=== PATIENT | female | born 1945 | race Caucasian/White ===

== ENCOUNTER 2016-03-30 07:50 | Inpatient (IN) | payer MEDICARE, BC ==
[2016-03-30] MEDS ORDERED: Magnesium Hydroxide LIQ* 30 ML UDC PO PRN (12:34)
[2016-03-30] MEDS ORDERED: Bisacodyl SUPP* 10 MG SUPP PR PRN (12:34)
[2016-03-30] MEDS ORDERED: Acetaminophen TAB* 325 MG PO PRN (12:34)
[2016-03-30] MEDS: HYDROcodone/ACETAMIN 5-325 MG* 1 TAB PO PRN ×3 (13:23→23:31)
[2016-03-30] MEDS: Cephalexin CAP* 500 MG PO SCH ×2 (14:01→20:55)
[2016-03-30] MEDS ORDERED: Warfarin TAB(*) 5 MG PO SCH (17:00)
[2016-03-30] MEDS: Atorvastatin* 20 MG TAB PO SCH (17:43)
[2016-03-30] MEDS: Enoxaparin(*) 80 MG/0.8 ML SYR SUBCUT SCH (18:07)
[2016-03-30] MEDS: fentaNYL PATCH 12 MCG/HR TRANSDERM SCH (20:40)
[2016-03-30] MEDS: Docusate CAP* 100 MG PO SCH (20:55)
[2016-03-30] MEDS: Senna TAB PO SCH (20:55)
[2016-03-30] MEDS: Sertraline* 100 MG TAB PO SCH (20:55)
[2016-03-30] MEDS: fentaNYL Patch Check Q Shift 1 NOTE SCH (21:01)
--- NOTE | 2016-03-31 01:22 | HP ---
ADMISSION HISTORY AND PHYSICAL: DATE OF ADMISSION: 03/30/16 REASON FOR ADMISSION: Left hip fracture. HISTORY OF ILLNESS: Teri Cabrales is a 70-year-old female. She has a history of factor V Leiden and has had a pulmonary embolus in the past. She has also had mini strokes. As a result, she takes chronic Coumadin therapy. On , the patient was going to a dinner at a friend's house. She was carrying some packages into the house and went up the steps. As she was opening the screen door to knock on the front door, she lost her balance and fell down on the 3 steps. She landed on her left hip. She was able to get to her pocket bucket and pull out her cellphone and called the people in the house for help. 911 was called and she was brought to [facility] for evaluation. In the emergency room, the patient had an x-ray taken of her hip. She was found to have a subcapital impaction fracture of the left hip. It was recommended that she had a CT scan for further evaluation. She did have a pelvic CT scan showing mildly impacted basicervical left femoral neck fracture with anterior angulation. The orthopedic surgeon, Dr. Holliday, was consulted. Her anticoagulation had to be reversed. She was taken to the operating room on and had a closed reduction with cannulated screw fixation done of the left hip. She was made touchdown weightbearing after her surgery. The patient was felt to have physical therapy and occupational therapy needs. She is now being admitted for inpatient rehab so that she might return to independent living. PAST MEDICAL HISTORY: Significant for the aforementioned factor V Leiden and pulmonary embolus. She has also had 3 previous surgeries on her right hip with a total hip replacement on the right. She has had spinal surgery in the past and uses a fentanyl patch for chronic back pain. She has a history of having mini strokes and hyperlipidemia. CURRENT MEDICATIONS: Include the Duragesic patch. She is also on: 1. Deerfield. 2. Keflex. 3. Lovenox. 4. Coumadin. 5. Senokot. 6. Zoloft. 7. Lipitor instead of her usual Zocor. ALLERGIES: Include PERCOCET and SULFA DRUGS. SOCIAL HISTORY: She is a nonsmoker, nondrinker. Lives by herself in a one- kareen apartment. She lives in the [facility]. She was independent in her activities of daily prior to admission. REVIEW OF SYSTEMS: The patient reports no current shortness of breath or chest pain. PHYSICAL EXAMINATION VITAL SIGNS: The patient's temperature is 98.8, blood pressure is 106/56, pulse 85, and respirations 18. HEENT: Her extraocular movements are intact. Tongue is midline. NECK: supple. LUNGS: Sound clear to auscultation bilaterally. HEART: Sounds are regular. S1 and S2 are audible. ABDOMEN: Soft and nontender. EXTREMITIES: Her left hip has a wound, which is clean and dry. Peripheral pulses are intact. NEUROLOGIC: She is awake, alert, and oriented. Muscle strength appears to be 5 /5 except the left hip, which is 3/5 secondary to pain. FUNCTIONAL EXAM: She transfers with mini assist. ASSESSMENT: Basicervical left femoral neck fracture, status post cannulated screw fixation. PLAN: Integrate her into a comprehensive and therapeutic rehab program on the following goals: 1. Physical Therapy will work with the patient. They are going to work on functional transfer training, ambulation training with a walker, and wheelchair mobilities. She is toe-touch weightbearing on the left. 2. Occupational Therapy will see the patient and work on her activities of daily living including toileting and toilet transfers. 3. Coumadin for her factor V Leiden and her DVT prophylaxis. Until she is therapeutic, we are going to continue her on Lovenox 70 mg subcutaneously twice a day. 4. Continue her fentanyl patch for chronic pain and for her new pain, we will continue Deerfield 1 to 2 tablets every 4 hours as needed. 5. Her bowels will be regulated. 6. dental services director will be closely involved to make sure that any services and equipment that the patient requires are in place prior to discharge. 7. Advanced directives: The patient is a full code. 8. For her depression, we will continue Zoloft. 9. Home with appropriate services. ESTIMATED LENGTH OF STAY: Twelve days. [id number]/[facility] #: [id number] [place]
[2016-03-31] MEDS: HYDROcodone/ACETAMIN 5-325 MG* 1 TAB PO PRN ×5 (03:51→20:11)
[2016-03-31] MEDS: Enoxaparin(*) 80 MG/0.8 ML SYR SUBCUT SCH ×2 (06:13→18:18)
[2016-03-31] MEDS: Cephalexin CAP* 500 MG PO SCH ×3 (06:13→20:09)
[2016-03-31 06:22] LABS: Hematocrit 33 % (35-47); Hemoglobin 10.6 g/dl (12.0-16.0); Mean Corpuscular HGB Conc 33 g/dl (31-36); Mean Corpuscular Hemoglobin 29 pg (27-31); Mean Corpuscular Volume 88 fL (80-97); Mean Platelet Volume 8 um3 (7.4-10.4); Red Cell Distribution Width 15 % (10.5-15); White Blood Count 7.4 10^3/ul (3.5-10.8)
[2016-03-31] MEDS: fentaNYL Patch Check Q Shift 1 NOTE SCH ×3 (07:07→23:55)
[2016-03-31] MEDS: Docusate CAP* 100 MG PO SCH ×2 (09:05→20:10)
[2016-03-31] MEDS ORDERED: Warfarin TAB(*) 6 MG PO SCH (12:43)
--- NOTE | 2016-03-31 16:19 | PN ---
Progress Note - Progress Note SOAP: Subjective: [Pt is doing well, sitting comfortably in her bed. She states that her pain is under control. ] Objective: [General: Pt is awake, alert and oriented. Pt is jovial and in no acute distress LLE: Dressing is clean, dry and intact. Pt is able to lift thigh up off the bed. She is able to move toes and ankles. Pt has sensation to light touch distal to the incision site. DP and PT are 2+ bilaterally. ] Vital Signs Temp 98.2 F 03/31/16 15:58 Pulse 89 03/31/16 15:58 Resp 16 03/31/16 16:09 BP 118/61 03/31/16 15:58 Pulse Ox 91 03/31/16 15:58 Intake & Output 03/30/16 03/31/16 03/31/16 18:59 06:59 18:59 Intake Total 360 600 Output Total 0 Balance 360 0 600 Weight 162 lb Intake: Oral 360 600 Output: # Incontinent Voids 0 Other: Estimated Void Medium Medium Medium # Voids 1 1 1 Assessment: [S/P left hip CRPP] Plan: [Continue with current pain management Continue PT/OT Continue current DVT prophylaxis ]
[2016-03-31] MEDS: Atorvastatin* 20 MG TAB PO SCH (18:18)
[2016-03-31] MEDS: Sertraline* 100 MG TAB PO SCH (20:09)
[2016-03-31] MEDS: Senna TAB PO SCH (20:09)
[2016-03-31] MEDS: Cyclobenzaprine TAB* 10 MG PO PRN (20:10)
[2016-04-01] MEDS: HYDROcodone/ACETAMIN 5-325 MG* 1 TAB PO PRN ×5 (02:10→21:31)
[2016-04-01] MEDS: Cephalexin CAP* 500 MG PO SCH ×3 (05:56→21:32)
[2016-04-01] MEDS: Enoxaparin(*) 80 MG/0.8 ML SYR SUBCUT SCH ×2 (05:57→17:08)
[2016-04-01 06:36] LABS: Albumin 2.9 g/dL (3.2-5.2); BUN/Creatinine Ratio 23.6 (8-20); Calcium 8.1 mg/dL (8.6-10.3); EGFR African American 80.9 (>60); EGFR Non-African American 62.9 (>60); Globulin 2.8 g/dL (2-4); Potassium 4.1 mmol/L (3.5-5.0); Total Bilirubin 0.4 mg/dL (0.2-1.0); Total Protein 5.7 g/dL (6.4-8.9)
[2016-04-01] MEDS: fentaNYL Patch Check Q Shift 1 NOTE SCH ×3 (06:59→23:10)
[2016-04-01] MEDS: Docusate CAP* 100 MG PO SCH ×2 (08:46→21:32)
--- NOTE | 2016-04-01 12:57 | PMRUTEAM ---
PMRU: Goals Current Status: Nursing: Current Status Skin Deviations [right hip and Incision lower back] Skin Deviations [Left Hip] Incision Skin Deviation Description [ old healed right hip and lower back] Skin Deviation Description [ dressing CDI Left Hip] Physical Therapy: Current Status Bed Mobility Assistance Supervision Transfer Moblility Assistance Supervision Transfer/Bed Mobility Rolling Walker Recommended Devices Ambulation Assistance Supervision Ambulation Assistive Devices Rolling Walker Number of Feet Patient 12' x 2 Ambulated Manual Wheelchair Control/ Bilateral UE's Technique Wheelchair Propulsion Ability Standby Assistance Wheelchair Distance (ft) 600' Occupational Therapy: Current Status Upper Body Dressing Supervision Lower Body Dressing Supervision Bathing Min Assist Toileting Mod Assist Toilet Transfer Min Assist Shower Transfer Contact Guard Assist Eating Independent Social Work: Current Status Discharge Plan return home with home care svs and support from friends Potential for Family Training n/a Anticipated Discharge Home Destination Discharge With support from friends and home care svs Goals: Physical Therapy: Initial Goals Bed Mobility Assistance Independent Transfer Mobility Assistance Independent Transfer/Bed Mobility Rolling Walker Recommended Devices Ambulation Independent Ambulation Recommended Devices Rolling Walker Ambulation Distance 25 Wheelchair Propulsion Ability Independent Wheelchair Distance (ft) 150 Physical Therapy: Updated Goals Transfer/Bed Mobility Rolling Walker Recommended Devices Occupational Therapy: Initial Goals Goals to be Completed in (Days 5-7 ) Upper Body Bathing Routine Independent Lower Body Bathing Routine Modified Independent with Upper Body Dressing Routine Independent Lower Body Dressing Routine Modified Independent with Toilet Hygeine and Clothing Modified Independent with Management Routine Toilet Transfer Routine Modified Independent with Step-In Shower Transfer Modified Independent with Routine Tub Transfer Routine Modified Independent with Functional Transfers for ADL Modified Independent with Grooming Routine Independent Feeding Routine Independent Social Work: Goals Discharge Plan return home with home care svs and support from friends Potential for Family Training n/a Anticipated Discharge Home Destination Discharge With support from friends and home care svs Care Plan: Care Plan ADL's - Improve/Maintain Start: 03/30/16 18:42 Freq: QSHIFT Status: Active Target: Activity Type Activity Date Activity User E-Sign Co-Sign Detail Recorded Client Recorded Date Recorded By Document 03/31/16 14:11 [id number] [id number] 03/31/16 14:11 [id number] 03/31/16 14:11 PMRU Outcome: ADL's/ADL Transfers Orders/Interventions Occupational Therapy Evaluation & Treatment Device Yes Patient to receive OT 5x/wk for 60-120 Therex min/day Self Care Management Group Therapy UE/LE ADL's with Assist Yes: mod I ADL Transfers with Assist Yes: mod I Toileting: Transfers,Clothing Management Yes: mod I ,Hygeine w/Assist Light Kitchen/Laundry w/Assist Yes: mod I Progression Toward Outcome/Goals Progressing DVT Prophylaxis- Improve/Maintain Start: 03/30/16 18:42 Freq: QSHIFT Status: Active Target: Activity Type Activity Date Activity User E-Sign Co-Sign Detail Recorded Client Recorded Date Recorded By Document 04/01/16 00:49 [id number] 04/01/16 00:50 [id number] 04/01/16 00:49 PMRU Outcome: DVT Prophylaxis Outcome/Goals Complies with DVT Prophylaxis /Treatment TEDS Stockings on Every AM, Off at HS Progression Toward Outcome/Goals Progressing Discharge Planning - Improve/Maintain Start: 03/30/16 18:42 Freq: QSHIFT Status: Active Target: Activity Type Activity Date Activity User E-Sign Co-Sign Detail Recorded Client Recorded Date Recorded By Document 04/01/16 00:49 [id number] 04/01/16 00:50 [id number] 04/01/16 00:49 PMRU Outcome: Discharge Planning Outcome/Goals Demonstrates Understanding of Discharge Plan Progression Toward Outcome/Goals Progressing Education-Improve/Maintain Start: 03/30/16 18:42 Freq: QSHIFT Status: Active Target: Activity Type Activity Date Activity User E-Sign Co-Sign Detail Recorded Client Recorded Date Recorded By Document 04/01/16 00:49 [id number] 04/01/16 00:50 [id number] 04/01/16 00:49 PMRU Outcome: Education Outcome/Goals Demonstrate/ Verbalize Understanding of Written Discharge Instructions Encourage Questions Progression Toward Outcome/Goals Progressing Mobility- Improve/Maintain Start: 03/30/16 11:47 Freq: QSHIFT Status: Active Target: Activity Type Activity Date Activity User E-Sign Co-Sign Detail Recorded Client Recorded Date Recorded By Document 04/01/16 10:55 [id number] 04/01/16 10:55 [id number] 04/01/16 10:55 PMRU Outcome: Mobility Physical Therapy Evaluation and Yes Treatment Activity OOB with Assistance Yes WBAT No NWB No TTWB Yes Device Yes: RW Assistance Yes: Min(A)x1 Patient to be seen 5x/wk for 60-120 min/ Therex day for: Mobility Training Gait Training W/C Mobility Balance Outcome/Goals Maintain/ Achieve Baseline Mobility Status Improve Mobility Status Demonstrates Proper Use of Assistive Devices Free from Complications of Immobility Other Outcome/Goals Independent bed mobility. Modified Independent transfers with RW. Modified Independent ambulation 25ft with RW. Modified Independent manual w/c mobility up to 150ft. Progression Toward Outcome/Goals Progressing Outcome/Goals Met Maintain/ Achieve Baseline Mobility Status Improve Mobility Status Demonstrates Proper Use of Assistive Devices Free from Complications of Immobility Bed Mobility Yes: Independent bed mobility. Transfers Yes: Modified Independent transfers with RW. Gait x ft Yes: Modified Independent ambulation 25ft with RW. W/C Mobility x ft Yes: Modified Independent manual w/c mobility up to 150ft. Pain/Comfort- Improve/Maintain Start: 03/30/16 18:42 Freq: QSHIFT Status: Active Target: Activity Type Activity Date Activity User E-Sign Co-Sign Detail Recorded Client Recorded Date Recorded By Document 04/01/16 00:49 [id number] 04/01/16 00:50 [id number] 04/01/16 00:49 PMRU Outcome: Pain/Comfort Outcome/Goals Demonstrates Knowledge and Use of Available Comfort Measures Achieves Acceptable Comfort/Pain Level as Determined by Patient/Condit Maintain Comfort Level Allowing Patient to Fully Participate in Rehab Progression Toward Outcome/Goals Progressing Respiratory - Improve/Maintain Start: 03/30/16 18:42 Freq: QSHIFT Status: Active Target: Activity Type Activity Date Activity User E-Sign Co-Sign Detail Recorded Client Recorded Date Recorded By Document 04/01/16 00:49 [id number] 04/01/16 00:50 [id number] 04/01/16 00:49 PMRU Outcome: Respiratory Does Patient Have a Trach No Outcome/Goals Maintain/ Improve Baseline Respiratory Status Prevent Pneumonia/ Atelectasis Progression Toward Outcome/Goals Progressing Safety- Improve/Maintain Start: 03/30/16 18:42 Freq: QSHIFT Status: Active Target: Activity Type Activity Date Activity User E-Sign Co-Sign Detail Recorded Client Recorded Date Recorded By Document 04/01/16 00:49 [id number] 04/01/16 00:50 [id number] 04/01/16 00:49 PMRU Outcome: Safety Outcome/Goals Remain Free of Injury or Harm Cooperates with Safety Measures for Least Restrictive Environment Prevent Falls/ Injury Progression Toward Outcome/Goals Progressing Skin- Improve/Maintain Start: 03/30/16 18:42 Freq: QSHIFT Status: Active Target: Activity Type Activity Date Activity User E-Sign Co-Sign Detail Recorded Client Recorded Date Recorded By Document 04/01/16 00:49 [id number] 04/01/16 00:50 [id number] 04/01/16 00:49 PMRU Outcome: Skin Skin Risk Level Medium Skin Orders Dressing Change Outcome/Goals Maintain/ Improve Skin Intergrity Free from Decubitus Progression Toward Outcome/Goals Progressing Medicine Note: Length of Stay: 4 days Anticipated Discharge Destination: Home Tentative Discharge Date: 04/05/16 Discharged to: home
[2016-04-01] MEDS: Atorvastatin* 20 MG TAB PO SCH (17:07)
[2016-04-01] MEDS: Warfarin TAB(*) 7.5 MG PO SCH (17:07)
[2016-04-01] MEDS: Sertraline* 100 MG TAB PO SCH (21:31)
[2016-04-01] MEDS: Senna TAB PO SCH (21:32)
[2016-04-01] MEDS: Cyclobenzaprine TAB* 10 MG PO PRN (21:34)
[2016-04-02] MEDS: HYDROcodone/ACETAMIN 5-325 MG* 1 TAB PO PRN ×5 (01:27→23:03)
[2016-04-02] MEDS: Enoxaparin(*) 80 MG/0.8 ML SYR SUBCUT SCH ×2 (05:59→20:06)
[2016-04-02] MEDS: Cephalexin CAP* 500 MG PO SCH ×3 (05:59→20:08)
[2016-04-02] MEDS: fentaNYL Patch Check Q Shift 1 NOTE SCH ×3 (06:57→22:58)
[2016-04-02] MEDS: Docusate CAP* 100 MG PO SCH ×2 (08:06→20:08)
--- NOTE | 2016-04-02 10:50 | PN ---
Progress Note - Progress Note SOAP: Subjective: [Pt is doing well. Seen on return from PT. Pt states that she is in a little pain from the PT but has not had pain upon waking in the morning. Pt states that she can dress herself and clean herself in the morning. ] Objective: [General: Pt is awake, alert and oriented. Pt is jovial and in no acute distress LLE: Dressing is clean, dry and intact and was changed this morning. Pt is able to lift thigh up off the chair. She is able to move toes and ankles. Pt has sensation to light touch distal to the incision site. DP and PT are 2+ bilaterally.] Vital Signs Temp 98.5 F 04/02/16 06:23 Pulse 82 04/02/16 06:23 Resp 18 04/02/16 09:55 BP 121/65 04/02/16 06:23 Pulse Ox 100 04/02/16 08:00 Intake & Output 04/01/16 04/02/16 04/02/16 18:59 06:59 18:59 Intake Total 720 440 Output Total 0 0 Balance 720 0 440 Intake: Oral 720 440 Output: # Incontinent Voids 0 0 Other: Estimated Void Medium Medium # Bowel Movements 1 Estimated Stool Amount Large Medium # Voids 1 1 Assessment: [S/P L hip CRPP ] Plan: [Continue with current pain management Continue PT/OT Continue current DVT prophylaxis ]
[2016-04-02] MEDS: Atorvastatin* 20 MG TAB PO SCH (17:34)
[2016-04-02] MEDS: Warfarin TAB(*) 7.5 MG PO SCH (17:34)
[2016-04-02] MEDS: Sertraline* 100 MG TAB PO SCH (20:08)
[2016-04-02] MEDS: fentaNYL PATCH 12 MCG/HR TRANSDERM SCH (20:45)
[2016-04-02] MEDS: Senna TAB PO SCH (20:51)
[2016-04-03] MEDS: Cephalexin CAP* 500 MG PO SCH ×3 (06:33→21:04)
[2016-04-03] MEDS: HYDROcodone/ACETAMIN 5-325 MG* 1 TAB PO PRN ×2 (06:33→18:20)
[2016-04-03] MEDS: Enoxaparin(*) 80 MG/0.8 ML SYR SUBCUT SCH ×2 (06:35→18:20)
[2016-04-03] MEDS: fentaNYL Patch Check Q Shift 1 NOTE SCH ×3 (07:03→22:52)
[2016-04-03] MEDS: Docusate CAP* 100 MG PO SCH ×2 (09:04→20:59)
--- NOTE | 2016-04-03 12:12 | PN ---
Progress Note - Progress Note SOAP: Subjective: [Subjective: [Pt is doing well and sitting comfortably in chair eating a muffin with a friend. Pt states that pain continues to improve. Pt states that she can dress herself and clean herself in the morning. Able to stand out of chair while holding on to chair. ] Objective: [General: Pt is awake, alert and oriented. Pt is jovial and in no acute distress LLE: Dressing is clean, dry and intact.. Pt is able to lift thigh up off the chair. She is able to move toes and ankles. Pt has sensation to light touch distal to the incision site. DP and PT are 2+ bilaterally.] Assessment: [S/P L hip CRPP ] Plan: [Continue with current pain management Continue PT/OT Continue current DVT prophylaxis] D/C per PMRU on 04/05/16
[2016-04-03] MEDS: Atorvastatin* 20 MG TAB PO SCH (18:20)
[2016-04-03] MEDS: Warfarin TAB(*) 7.5 MG PO SCH (18:21)
[2016-04-03] MEDS: Senna TAB PO SCH (20:59)
[2016-04-03] MEDS: Sertraline* 100 MG TAB PO SCH (21:04)
[2016-04-04] MEDS: HYDROcodone/ACETAMIN 5-325 MG* 1 TAB PO PRN ×3 (06:01→18:17)
[2016-04-04] MEDS: Cephalexin CAP* 500 MG PO SCH ×3 (06:01→21:08)
[2016-04-04] MEDS: Enoxaparin(*) 80 MG/0.8 ML SYR SUBCUT SCH ×2 (06:04→18:18)
[2016-04-04 07:23] LABS: Hematocrit 30 % (35-47); Hemoglobin 9.7 g/dl (12.0-16.0); Mean Corpuscular HGB Conc 32 g/dl (31-36); Mean Corpuscular Hemoglobin 29 pg (27-31); Mean Corpuscular Volume 89 fL (80-97); Mean Platelet Volume 9 um3 (7.4-10.4); Red Blood Count 3.37 10^6/ul (4.0-5.4); Red Cell Distribution Width 15 % (10.5-15); White Blood Count 7.6 10^3/ul (3.5-10.8)
[2016-04-04] MEDS: Docusate CAP* 100 MG PO SCH ×2 (08:39→21:07)
[2016-04-04] MEDS: fentaNYL Patch Check Q Shift 1 NOTE SCH ×3 (08:42→22:56)
[2016-04-04] MEDS: Warfarin TAB(*) 7.5 MG PO SCH (17:36)
[2016-04-04] MEDS: Atorvastatin* 20 MG TAB PO SCH (18:18)
[2016-04-04] MEDS: Senna TAB PO SCH (21:07)
[2016-04-04] MEDS: Sertraline* 100 MG TAB PO SCH (21:08)
[2016-04-05] MEDS: Cephalexin CAP* 500 MG PO SCH (05:37)
[2016-04-05 06:30] VITALS: BP 104/85
[2016-04-05] MEDS: fentaNYL Patch Check Q Shift 1 NOTE SCH (07:11)
--- NOTE | 2016-04-05 08:11 | PN ---
Progress Note - Progress Note Note: [Subjective: [Pt is doing well and sitting comfortably in bed eating breakfast. Pt states that pain is under good control. Pt states that she can dress herself and clean herself in the morning. She was able to ambulate by herself using the walker last night. . ] Objective: [General: Pt is awake, alert and oriented. Pt is in no acute distress LLE: Dressing is clean, dry and intact.. Pt is able to lift thigh up off the chair. She is able to move toes and ankles. Pt has sensation to light touch distal to the incision site. DP and PT are 2+ bilaterally.] Vital Signs Temp 98.4 F 04/05/16 05:44 Pulse 93 04/05/16 05:44 Resp 18 04/05/16 05:44 BP 104/85 04/05/16 05:44 Pulse Ox 99 04/05/16 05:44 Intake & Output 04/04/16 04/05/16 04/05/16 18:59 06:59 18:59 Intake Total 360 Balance 360 Intake: Oral 360 Other: Estimated Void Medium # Voids 1 1 Assessment: [S/P L hip CRPP ] Plan: [Pt will be D/C home today per PMRU Pt will follow up 10 - 14 days post op at [facility] orthopedics with Dr. Holliday. ]
[2016-04-05] MEDS: HYDROcodone/ACETAMIN 5-325 MG* 1 TAB PO PRN (08:26)
[2016-04-05] MEDS: Docusate CAP* 100 MG PO SCH (08:27)
--- NOTE | 2016-04-06 03:35 | DS ---
DISCHARGE SUMMARY: DATE OF ADMISSION: 03/30/16 DATE OF DISCHARGE: 04/05/16 DISCHARGE DIAGNOSES: 1. Left hip fracture. 2. Factor V Leiden. 3. History of total hip replacement, right side. 4. Spinal stenosis/chronic back pain. 5. Hyperlipidemia. HISTORY OF ILLNESS AND HOSPITAL COURSE: For complete history of the events leading up to her rehab stay, please see the history and physical dictated by me on 03/30/16. While on the rehab unit, the patient was transitioned from Lovenox to Coumadin. Her Coumadin dose had to be increased. At the time of discharge, she was therapeutic on Coumadin and her Lovenox was discontinued. The patient received antibiotics as ordered by her orthopedic surgeon while on the rehab unit. The patient received adequate analgesia using oral analgesics. The patient was seen by Physical and Occupational Therapy and made good gains with both disciplines. With Physical Therapy at the time of admission, the patient required minimal amount of assistance to transfer, she was unable to ambulate. With Occupational Therapy, she was min-to-mod assist for toileting and toilet transfers. By the time of discharge, she was independent in transfers. She was independent in ambulating about 40 feet using a 2-wheeled walker, independent with her wheelchair. She was independent with all activities of daily living. She was discharged home to her apartment on . DISCHARGE DIET: Regular. DISCHARGE MEDICATIONS: 1. Flexeril 10 mg every 8 hours as needed. 2. Porter 1 to 2 tablets every 4 hours as needed. 3. Fentanyl patch 12 mcg changing every 72 hours. 4. Zoloft 100 mg at bedtime. 5. Coumadin 6 mg daily or as directed. 6. Zocor 40 mg daily or as directed. SERVICES AFTER DISCHARGE: Visiting nurse service. The patient will have home nursing, home physical therapy, and a home health aide. Follow up with Dr. Holliday in 1 week for suture removal and followup x-ray. She will also follow up with her primary care doctor, Dr. Nimco Yadav, as needed. CC: Nimco Yadav MD* [id number]/[facility] #: [id number] [facility]
== END 2016-04-05 12:00 | disposition home or self-care (01) | DRG 560 ==
LOC: PMRU 11:00
PROVIDERS: ADMIT Physical Medicine & Rehabilitation; ATTEND Physical Medicine & Rehabilitation
PROC: F07Z5ZZ Bed Mobility Treatment (ICD-10-PCS; principal; 2016-03-30)
PROC: F07Z9ZZ Gait Training/Functional Ambulation Treatment (ICD-10-PCS; 2016-03-30)
PROC: F07Z8ZZ Transfer Training Treatment (ICD-10-PCS; 2016-03-30)
PROC: F07Z4ZZ Wheelchair Mobility Treatment (ICD-10-PCS; 2016-03-30)
PROC: F08Z0ZZ Bathing/Showering Techniques Treatment (ICD-10-PCS; 2016-03-30)
PROC: F08Z1ZZ Dressing Techniques Treatment (ICD-10-PCS; 2016-03-30)
PROC: F08Z3ZZ Feeding/Eating Treatment (ICD-10-PCS; 2016-03-30)
DX: S72.032D Displaced midcervical fracture of left femur, subsequent encounter for closed fracture with routine healing (principal); D68.51 Activated protein C resistance; W10.9XXD Fall (on) (from) unspecified stairs and steps, subsequent encounter; M48.00 Spinal stenosis, site unspecified; E78.5 Hyperlipidemia, unspecified; Z96.641 Presence of right artificial hip joint; Z86.711 Personal history of pulmonary embolism; Z79.01 Long term (current) use of anticoagulants; Z86.73 Personal history of transient ischemic attack (TIA), and cerebral infarction without residual deficits; Z79.899 Other long term (current) drug therapy; Z88.6 Allergy status to analgesic agent; Z88.2 Allergy status to sulfonamides
CPT/HCPCS: 36415; 80053; 85025; 85610; A9270-GY; J1650

== ENCOUNTER 2016-11-29 09:27 | Day surgery (SDC) | payer MEDICARE, BC ==
[~2016-11-29 09:27] MED LIST: Acetaminophen TAB* 325 MG PO PRN; Buffered Lidocaine 0.9% SYRIN* 5 ML/SYR SYRINGE INTRADERM ONE
[2016-11-29] MEDS ORDERED: fentaNYL* 50 MCG/ML 2 ML VIAL (100 MCG VIAL) ONE (09:46)
[2016-11-29] MEDS ORDERED: Midazolam* 1 MG/ML 5 ML VIAL (5 MG) ONE (09:46)
[2016-11-29] MEDS ORDERED: Buffered Lidocaine 0.9% SYRIN* 5 ML/SYR SYRINGE ONE ×2 (11:00→14:16)
[2016-11-29 12:02] VITALS: BP 103/56
[2016-11-29] MEDS ORDERED: Phenylephrine 2.5% OPTH.SOL* 2 ML BTL ONE (14:16)
[2016-11-29] MEDS ORDERED: Lidocaine 1% MPF* 2 ML VIAL ONE (14:16)
[2016-11-29] MEDS ORDERED: Cyclopentolate 1% OPTH.SOL* 2 ML BTL ONE (14:16)
[2016-11-29] MEDS ORDERED: Tetracaine 0.5% OPTH.SOL 4 ML* 1 DROP BTL ONE (14:16)
[2016-11-29] MEDS ORDERED: Tropicamide 1% OPTH.SOL* BTL ONE (14:16)
[2016-11-29] MEDS ORDERED: Neomycin/Polymy/Dex OPHTH.OIN* 3.5 GM ONE (14:16)
[2016-11-29] MEDS ORDERED: Ketorolac 0.5% OPHTH (NF) 0.5 % 5 ML BTL ONE (14:16)
--- NOTE | 2016-11-30 00:20 | OP ---
DATE OF OPERATION: 11/29/16 [facility] DATE OF : 47 SURGEON: Dr. Beka Youngblood. RIVER RAT: None. ANESTHESIOLOGIST: Misael Ferrer MD ANESTHESIA: Topical with intravenous sedation. PRE-OP DIAGNOSIS: Cataract, left eye. POST-OP DIAGNOSIS: Cataract, left eye. OPERATIVE PROCEDURE: Phacoemulsification and cataract extraction with posterior chamber intraocular lens implant, left eye. COMPLICATIONS: None. BLOOD LOSS: None. DESCRIPTION OF PROCEDURE: The patient was brought to the operating room and received a small amount of intravenous sedation. A drop of Tetracaine was placed in her left eye. She was prepped and draped in the usual sterile fashion for ophthalmic surgery and attention was directed to the left eye where a speculum was placed. A paracentesis was created at the 5 o'clock position and 0.1 cc of 1 percent preservative-free Lidocaine was injected into the anterior chamber followed by DisCoVisc. The eye was digitally stabilized while a 2.75 mm keratome was used to create a triplanar clear corneal incision at the 3 o'clock position. A continuous curvilinear capsulorrhexis was created with a cystotome and Utrata forceps. BSS on a cannula was used to hydrodissect the lens from the capsule. Phacoemulsification was performed in a divide-and- conquer technique to create four fragments which were removed. Residual cortical material was removed with irrigation and aspiration. DisCoVisc was used to inflate the capsular bag and an AU00T0 13.5 diopter lens was folded and inserted into the capsular bag. DisCoVisc was removed using irrigation and aspiration. BSS on a cannula was used to hydrate the corneal stroma and seal the wound. At the end of the case the pupil was round and the lens was centered. The eye was of normal pressure and the wound was water tight. The speculum was removed and topical Maxitrol ointment was placed on the surface of the eye. The eye was closed, patched and shielded and the patient was sent to the recovery room in stable condition with post operative instructions and follow-up appointment given. [id number]/[facility] #: [id number] MTDD
== END 2016-11-29 12:05 | disposition home or self-care (01) ==
LOC: OREAST 09:27
PROVIDERS: ATTEND Ophthalmology
DX: H25.12 Age-related nuclear cataract, left eye (principal); D68.51 Activated protein C resistance; I82.509 Chronic embolism and thrombosis of unspecified deep veins of unspecified lower extremity; F32.9 Major depressive disorder, single episode, unspecified; Z79.01 Long term (current) use of anticoagulants; E78.5 Hyperlipidemia, unspecified; Z86.73 Personal history of transient ischemic attack (TIA), and cerebral infarction without residual deficits; Z88.5 Allergy status to narcotic agent; Z88.2 Allergy status to sulfonamides
CPT/HCPCS: A9270-GY; J2250; J3010; V2632

== ENCOUNTER 2016-12-13 09:24 | Day surgery (SDC) | payer MEDICARE, BC ==
[2016-12-13] MEDS ORDERED: Midazolam* 1 MG/ML 5 ML VIAL (5 MG) ONE (11:43)
[2016-12-13 12:08] VITALS: BP 117/62
[2016-12-13] MEDS ORDERED: Cyclopentolate 1% OPTH.SOL* 2 ML BTL ONE (13:58)
[2016-12-13] MEDS ORDERED: Tropicamide 1% OPTH.SOL* BTL ONE (13:58)
[2016-12-13] MEDS ORDERED: Lidocaine 1% MPF* 2 ML VIAL ONE (13:58)
[2016-12-13] MEDS ORDERED: Ketorolac 0.5% OPHTH (NF) 0.5 % 5 ML BTL ONE (13:58)
[2016-12-13] MEDS ORDERED: Tetracaine 0.5% OPTH.SOL 4 ML* 1 DROP BTL ONE (13:58)
[2016-12-13] MEDS ORDERED: Neomycin/Polymy/Dex OPHTH.OIN* 3.5 GM ONE (13:58)
[2016-12-13] MEDS ORDERED: Phenylephrine 2.5% OPTH.SOL* 2 ML BTL ONE (13:58)
[2016-12-13] MEDS ORDERED: Buffered Lidocaine 0.9% SYRIN* 5 ML/SYR SYRINGE ONE (13:58)
--- NOTE | 2016-12-13 14:37 | OP ---
DATE OF OPERATION/DATE OF DICTATION: 12/13/2016 - [facility] DATE OF : 1945. SURGEON: Dr. Beka Youngblood. SPLICER OPERATOR: None. ANESTHESIA: Topical with intravenous sedation. PRE-OP DIAGNOSIS: Cataract, right eye. POST-OP DIAGNOSIS: Cataract, right eye. OPERATIVE PROCEDURE: Phacoemulsification and cataract extraction with posterior chamber intraocular lens implant, right eye. COMPLICATIONS: None. BLOOD LOSS: None. DESCRIPTION OF PROCEDURE: The patient was brought to the operating room and received a small amount of intra-venous sedation. A drop of Tetracaine was placed in her right eye. She was prepped and draped in the usual sterile fashion for ophthalmic surgery and attention was directed to the right eye where a speculum was placed. A paracentesis was created at the 11 o'clock position and 0.1 cc of 1 percent preservative-free Lidocaine was injected into the anterior chamber followed by DisCoVisc. The eye was digitally stabilized while a 2.75 mm keratome was used to create a triplanar clear corneal incision at the 9 o'clock position. A continuous curvilinear capsulorrhexis was created with a cystotome and Utrata forceps. BSS on a cannula was used to hydrodissect the lens from the capsule. Phacoemulsification was performed in a divide-and- conquer technique to create four fragments which were removed. Residual cortical material was removed with irrigation and aspiration. DisCoVisc was used to inflate the capsular bag and an AUOOTO 14.5 diopter lens was folded and inserted into the capsular bag. DisCoVisc was removed using irrigation and aspiration. BSS on a cannula was used to hydrate the corneal stroma and seal the wound. At the end of the case the pupil was round and the lens was centered. The eye was of normal pressure and the wound was water tight. The speculum was removed and topical Maxitrol ointment was placed on the surface of the eye. The eye was closed, patched and shielded and the patient was sent to the recovery room in stable condition with post operative instructions and follow-up appointment given. [id number]/[facility] #: [id number] MTDD
== END 2016-12-13 12:20 | disposition home or self-care (01) ==
LOC: OREAST 09:24
PROVIDERS: ATTEND Ophthalmology
DX: H25.811 Combined forms of age-related cataract, right eye (principal); D68.51 Activated protein C resistance; I82.409 Acute embolism and thrombosis of unspecified deep veins of unspecified lower extremity; Z79.01 Long term (current) use of anticoagulants; E78.5 Hyperlipidemia, unspecified; F32.9 Major depressive disorder, single episode, unspecified; Z86.73 Personal history of transient ischemic attack (TIA), and cerebral infarction without residual deficits; Z96.1 Presence of intraocular lens; Z88.5 Allergy status to narcotic agent; Z88.2 Allergy status to sulfonamides
CPT/HCPCS: A9270-GY; J2250; V2632